=== PATIENT | female | born 1970 | race Hispanic/Latino ===

== ENCOUNTER 2018-03-06 17:30 | Emergency (ER) | payer BC ==
[2018-03-06] MEDS ORDERED: KETOROLAC TROMETHAMINE 30 MG/ML VIAL IV STA (18:18)
[2018-03-06] MEDS ORDERED: METFORMIN HCL500 MG PO (18:23)
== END 2018-03-06 19:00 | disposition home or self-care (01) ==
LOC: FSED 17:30
DX: K59.00 Constipation, unspecified (principal); Z88.0 Allergy status to penicillin
CPT/HCPCS: 74022; 80048; 85025; 99283; J1885

== ENCOUNTER 2018-03-22 15:07 | Emergency (ER) | payer BC ==
[~2018-03-22] VITALS: Ht 152.4 cm; Wt 77.1 kg
[~2018-03-22 15:07] MED LIST: METFORMIN HCL500 MG PO
[2018-03-22] MEDS ORDERED: ALBUTEROL/IPRATROPIUM 3 ML NEB NEB ONE (16:00)
== END 2018-03-22 18:13 | disposition home or self-care (01) ==
LOC: FSED 15:07
DX: R07.9 Chest pain, unspecified (principal); R05 Cough; J20.9 Acute bronchitis, unspecified; E11.9 Type 2 diabetes mellitus without complications
CPT/HCPCS: 71046; 80053; 81003; 82553; 84484; 85025; 93005; 99284

== ENCOUNTER 2018-10-28 19:45 | Emergency (ER) | payer BC ==
[~2018-10-28] VITALS: Ht 152.4 cm; Wt 74.8 kg
[2018-10-28] MEDS ORDERED: DONNATAL/LIDOCAINE/MAALOX 30 ML SUSP PO STA (20:07)
== END 2018-10-28 21:51 | disposition home or self-care (01) ==
LOC: FSED 19:45
DX: R10.13 Epigastric pain (principal); E11.9 Type 2 diabetes mellitus without complications; Z79.84 Long term (current) use of oral hypoglycemic drugs; F17.210 Nicotine dependence, cigarettes, uncomplicated
CPT/HCPCS: 80048; 80076; 81003; 81025; 82553; 84484; 85025; 93005; 99283

== ENCOUNTER 2018-11-18 14:50 | Emergency (ER) | payer BC ==
[~2018-11-18] VITALS: Ht 152.4 cm; Wt 74.8 kg
--- NOTE | 2018-11-18 15:52 | Diagnostic Imaging Report ---
EXAM: CT Abdomen and Pelvis WITHOUT contrast INDICATION: Right flank pain. Kidney infection. COMPARISON: None. TECHNIQUE: Abdomen and pelvis were scanned utilizing a multidetector helical scanner from the lung base to the pubic symphysis without administration of IV contrast. Absence of intravenous contrast decreases sensitivity for detection of focal lesions and vascular pathology. Coronal and sagittal reformations were obtained. Routine protocol was performed. IV CONTRAST: None. ORAL CONTRAST: Water RADIATION DOSE: Total DLP: 741.54 mGy*cm Estimated effective dose: (DLP x 0.015 x size factor) mSv COMPLICATIONS: None FINDINGS: LINES and TUBES: None. LOWER THORAX: Unremarkable HEPATOBILIARY: Mild hepatic steatosis. No focal hepatic lesions. No biliary ductal dilation. GALLBLADDER: No radio-opaque stones or sludge. No wall thickening. SPLEEN: No splenomegaly. PANCREAS: No focal masses or ductal dilatation. ADRENALS: No adrenal nodules KIDNEYS/URETERS: Left renal atrophy. No hydronephrosis. No cystic or solid mass lesions. No stones. GI TRACT: No abnormal distention, wall thickening, or evidence of bowel obstruction. Appendix is normal. PELVIC ORGANS/BLADDER: Unremarkable. LYMPH NODES: No lymphadenopathy. VESSELS: Unremarkable. PERITONEUM / RETROPERITONEUM: No free air or fluid. BONES: Unremarkable. SOFT TISSUES: Tiny fat-containing right inguinal hernia. IMPRESSION: 1. No acute abdominopelvic abnormality. 2. Left renal atrophy. Signed by: Dr. Jordi Nolasco M.D. on 11/18/2018 3:49 PM
== END 2018-11-18 17:01 | disposition home or self-care (01) ==
LOC: FSED 14:50
DX: R10.31 Right lower quadrant pain (principal); R11.0 Nausea; M54.5 Low back pain; N30.90 Cystitis, unspecified without hematuria; E11.9 Type 2 diabetes mellitus without complications
CPT/HCPCS: 74176; 81003; 81025; 99284

== ENCOUNTER 2020-09-02 08:07 | Emergency (ER) | payer OTHER ==
[~2020-09-02] VITALS: Ht 152.4 cm; Wt 74.8 kg
[~2020-09-02 08:07] MED LIST changes: +BACTRIM DS TAB1 EACH PO
[2020-09-02] MEDS ORDERED: ONDANSETRON HCL INJ 2MG/ML 2ML 2 MG/ML VIAL IV STA (08:28)
[2020-09-02] MEDS ORDERED: KETOROLAC TROMETHAMINE 30 MG/ML VIAL IV STA (08:28)
[2020-09-02] MEDS ORDERED: SODIUM CHLORIDE 0.9% 1000ML 1,000 ML ONE (08:44)
--- OUTSIDE RECORDS SUMMARY | 2020-09-02 08:45 | XMS REPORT | Continuity of Care Document ---
Author Author [facility] t Organization [facility] Address [address] [place] [address] Phone Unavailable Care Team Providers Care Warehouse Receiving Supervisor Name Role Phone ALESSANDRO CINTRON PCP Kay LARSON Unavailable Payers Payer Name Policy Type Policy Number Effective Date Expiration Date S ource Self Pay NA [facility] [id number] 2017 00:00:00 2 00:00:00 [facility] Problems This patient has no known problems. Allergies, Adverse Reactions, Alerts Allergy Name Allergy Type Status Severity Reaction(s) Onset Date Inacti ve Date Treating Clinician Comments Source Iodinated Contrast Media DA Active [place] 2020-08-16 00:00:00 [facility] Penicillin Allergy to Substance Active Mild HIVES 2017-01-13 00:00:00 [facility] Penicillins DA Active [place] 2016-08-30 00:00:00 [facility] Medications Ordered Medication Name Filled Medication Name Start Date Stop Da te Current Medication? Ordering Clinician Indication Dosage Frequency Signature (SIG) Comments Components Source Sulfamethoxazole/Trimethoprim (Bactrim Ds Tablet) 1 Ea ch Tablet Sulfamethoxazole/Trimethoprim (Bactrim Ds Tablet) 1 Each Tablet 2019-09-09 00:00:00 Yes Socorro Rose Md 1 Twice A Day for In fection [facility] Metformin Hcl 500 Mg Tablet Metformin Hcl 500 Mg Tablet Yes 500 Twice A Day [facility] Procedures This patient has no known procedures. Encounters Start Date/Time End Date/Time [facility]counter [facility] ID Source 2019-11-30 12:59:00 2019-11-30 14:23:00 Departed Emergency Room [facility] [id number] [facility] 2019-09-09 13:56:00 2019-09-09 15:02:00 Departed Emergency Room [facility] [id number] [facility]. [facility] 2018-11-18 14:50:00 2018-11-18 17:01:00 Departed Emergency Room 1 SIVA LARSON [facility] [id number] [facility]. [facility] 2018-10-28 19:45:00 2018-10-28 21:51:00 Departed Emergency Room [facility] [id number] [facility]. [facility] 2018-03-22 15:07:00 2018-03-22 18:13:00 Departed Emergency Room [facility] [id number] [facility]. [facility] 2018-03-06 17:30:00 2018-03-06 19:00:00 Departed Emergency Room [facility] [id number] [facility]. [facility] Results Test Description Test Time Test Comments Results Result Comments Source LACTIC ACID 2020-08-17 00:57:00 Test Item LACTIC ACID (test code = LACT) 2.7 MMOL/L 0.5-2.2 H RESULTS CALLED TO FLY/ER.READ BACK & CONFIRMED? Y.BY FDeniseLABRG 08/17/20 0057. [id number] 23:13:00* Test Item Value Reference Range Interpretation Comments MAGNESIUM (test code = MAG) 1.7 mg/dL 1.8-2.4 L Comments to Aircraft Electrician: Clean CatchSpecimen Comment: Clean CatchTHYROID STIMULATING [id number] 23:13:00* Test Item Value Reference Range Interpretation Comments THYROID STIMULATING HORMONE (test code = TSH) 3.69 0.36-3.7 4 N Test Performed in MicroInternational Units/mL Comments to Aircraft Electrician: Clean CatchSpecimen Comment: Clean CatchTROPONIN-I 2020-08-16 23:13:00* Test Item Value Reference Range Interpretation Comments TROPONIN-I (test code = TROPI) 0.041 ng/mL <0.056 N Comments to Aircraft Electrician: Clean CatchSpecimen Comment: Clean CatchLACTIC ACID 2020-08-16 23:11:00* Test Item Value Reference Range Interpretation Comments LACTIC ACID (test code = LACT) 3.8 MMOL/L 0.5-2.2 HH RESULTS CALLED TO CHI/ER.READ BACK & CONFIRMED? Y.BY F.LAB.GF 08/16/20 2311. CBC W/AUTO [id number] 22:48:00* Test Item Value Reference Range Interpretation Comments WHITE BLOOD CELL (test code = WBC) 16.5 K/mm3 6.6-12.1 H RED BLOOD CELL (test code = RBC) 3.84 M/mm3 3.45-5.01 N HEMOGLOBIN (test code = HGB) 9.3 g/dL 10.7-13.9 L HEMATOCRIT (test code = HCT) 30.6 % 32.1-42.1 L MEAN CELL VOLUME (test code = MCV) 80 fL 84.1-94.8 L MEAN CELL HGB (test code = MCH) 24.2 pg 27-35 L MEAN CELL HGB CONCETRATION (test code = MCHC) 30.4 gm/dL 32.2-34. 1 L RED CELL DISTRIBUTION WIDTH (test code = RDW) 15.0 % 12.4-16. 5 N PLATELET COUNT (test code = PLT) 285 K/mm3 133-385 N MEAN PLATELET VOLUME (test code = MPV) 11.0 fl 9.1-12.7 N NEUTROPHIL % (test code = NT%) 77.1 % 56.5-79.4 N LYMPHOCYTE % (test code = LY%) 17.7 % 14.3-34.3 N MONOCYTE % (test code = MO%) 1.7 % 5.1-10.4 L EOSINOPHIL % (test code = EO%) 2.8 % 0.1-3.0 N BASOPHIL % (test code = BA%) 0.2 % 0.1-1.0 N NEUTROPHIL # (test code = NT#) 12.8 K/mm3 LYMPHOCYTE # (test code = LY#) 2.9 K/mm3 MONOCYTE # (test code = MO#) 0.3 K/mm3 EOSINOPHIL # (test code = EO#) 0.46 K/mm3 BASOPHIL # (test code = BA#) 0.0 K/mm3 RBC MORPHOLOGY REQUIRED (test code = RBCM) NORMAL NORMAL PLATELET MORPHOLOGY REQUIRED (test code = PLTMR) NORMAL BLACK L - CT ABD PELVIS [id number] 21:09:00 Patient Name: AC CALIXTO Unit No: [id number] EXAMS: CPT CODE: [id number] CT ABD PELVIS W/CONT 84492 CT ABDOMEN AND PELVIS WITH CONTRAST INDICATION: Generalized abdominal pain and nausea. TECHNIQUE: 100 mL Isovue-300 Intravenous contrast was administered followed by CT imaging of the abdomen and pelvis with axial, coronal and sagittal reconstructions. CT imaging performed at this location utilizes radiation dose optimization technique which includes one or more of the followin) Automated exposure control; 2) Adjustment of the mA and/or kV according to patient's size; 3) Use of iterative reconstruction techniques. DLP (mGy-cm): 688 COMPARISONS: CT abdomen and pelvis 09/13/2019 FINDINGS: There is no acute osseous fracture or dislocation. There are tiny fat filled noninflamed inguinal hernias. There is no organized fluid collection or mass in the soft tissues. The aor ta reveals no aneurysm or acute process. The inferior vena cava reveals no acut e process. The lung bases reveal no acute process. There is suggestion o f fatty infiltration of the liver. There is no focal hepatic mass or acute pro cess. The gallbladder and bile ducts reveal no acute process. The pancre as reveals no acute process. The spleen reveals no acute process. Th e adrenal glands reveal no acute process or mass. There is chronic severe atrophy of the left kidney. There is compensatory hypertrophy of the right kid alisson. There is no acute renal process. There is no renal mass. There is a st able incidental 1.8 x 1.9 x 2.1 cm right renal artery aneurysm. [facility] NAME: AC CALIXTO Radiology Department PHYS: ISRAEL Hdz Abelardo Monroy [address] : 1970 AGE: 49 SEX: F [place], [place] [address] LOC: F.ERS PHONE #: [phone] EXAM DATE: 08/16/2020 STATUS: REG ER FAX #: [phone] RAD NO: Page 1 Signed Report 1 Patient Name: AC CALIXTO Unit No: [id number] EXAMS: CPT CODE: [id number] CT ABD PELVIS W/CONT 03120 < Continued> The urinary bladder reveals no acute process. There are corpus luteal cysts in the left ovary. There is no acute reproductive structure abnormality. There are benign vascular calcifications in the pelvis. There is no intra-abdominal free fluid. There is no intra-abdominal free gas. There is no lymphadenopathy. There is a small amount of retained colonic stool. There is no bowel obstruction. There is no bowel mucosal thickening or inflammation. There is no evidence of acute appendicitis. IMPRESSION: 1. No acute intra-abdominal process. 2. The appendix is normal. 3. There is a stable 1.8 x 1.9 x 2.1 cm right renal artery aneurysm. There is no evidence of aneurysm rupture. at 2108 Reported and signed by: Mitul Randhawa DO CC: Technologist: Kishore Roberts, RT CTDI: 12.93 DLP: 688.15 Trnscrbd D/ (2108) [email or web address] [facility] [place] NAME: AC CALIXTO Radiology Department PHYS: Abelardo Shipman [address] : 1970 AGE: 49 SEX: F [place], [place] [address] LOC: KATI PHONE #: [phone] EXAM DATE: 08/16/2020 STATUS: REG ER FAX #: [phone] RAD NO: Page 2 Signed Report 1 Patient Name: AC CALIXTO Unit No: [id number] EXAMS: CPT CODE: [id number] CT ABD PELVIS W/CONT 95789 <Continued> Orig Print D/T: S: 08/16/2020 (2111) [facility] NAME: AC CALIXTO Radiology Department PHYS: Abelardo Shipman [address] : 1970 AGE: 49 SEX: F [place], [place] [address] LOC: KATI PHONE #: [phone] EXAM DATE: 08/16/2020 STATUS: RIGO LOPEZ FAX #: [phone] RAD NO: Page 3 Si gned Report 1 HCG [id number] 20:30:00* Test Item Value Reference Range Interpretation Comments HCG SERUM (test code = HCG) <1 INTERPRETATION:VALUES BETWEEN 15-20 milliInternational units/mL NEED TO BERETESTED WITHIN 48 HOURS. All units for these ranges are in milliInternationalunits/mL0-1 WK AFTER CONCEPTION 0-50 1-2 WKS AFTER CONCEPTION 40-3002-3 WKS AFTER CONCEPTION 100-1,0003-4 WKS AFTER CONCEPTION 500-6,0001-2 MONTHS AFTER CONCEPTION 5,000-200,0002-3 MONTHS AFTER CONCEPTION 10,000-100,0002ND TRIMESTER 3,000-50,0003RD TRIMESTER 1,000- 50,000 SPECIMENS WITH AN HCG LEVEL FROM 0-6 milliInternationalunits/mL SHOULD BE CONSIDERED NEGATIVE COMPREHENSIVE METABOLIC [id number] 20:19:00* Test Item Value Reference Range Interpretation Comments SODIUM (test code = NA) 136 mEq/L 135-145 N POTASSIUM (test code = K) 3.7 mEq/L 3.5-5.0 N CHLORIDE (test code = CL) 104 mEq/L 100-115 N CARBON DIOXIDE (test code = CO2) 24 mEq/L 22-31 N ANION GAP (test code = GAP) 11.60 10-20 N GLUCOSE (test code = GLU) 213 mg/dL 65-110 H BLOOD UREA NITROGEN (test code = BUN) 17 mg/dL 7-18 N GLOMERULAR FILTRATION RATE (test code = GFR) 67 ml/min >60 N CREATININE (test code = CREAT) 0.9 mg/dL 0.5-1.0 N TOTAL PROTEIN (test code = PROT) 6.9 gm/dL 6.3-8.2 N ALBUMIN (test code = ALB) 3.3 gm/dL 3.4-4.8 L CALCIUM (test code = CA) 8.5 mg/dL 8.4-10.2 N BILIRUBIN TOTAL (test code = BILT) 0.2 mg/dL 0.2-1.0 N SGOT/AST (test code = AST) 25 units/L 15-37 N SGPT/ALT (test code = ALT) 50 units/L 12-78 N ALKALINE PHOSPHATASE TOTAL (test code = ALKP) 74 units/L 46-116 N [id number] 20:19:00* Test Item Value Reference Range Interpretation Comments LIPASE (test code = LIP) 350 units/L 73-393 N DRUGS OF ABUSE [id number] 20:13:00* Test Item Value Reference Range Interpretation Comments UR COCAINE (test code = COCAU) NEGATIVE NEGATIVE DETECTION CUT OFF: 150 ng/mL UR CANNABINOIDS (test code = CANU) NEGATIVE NEGATIVE DETECTION CUT OFF: 50 ng/mL UR AMPHETAMINE (test code = AMPHU) NEGATIVE NEGATIVE DETECTION CUT OFF: 500 ng/mL UR BARBITURATE QUAL (test code = BARBQLU) NEGATIVE NEGATIVE DETECTION CUT OFF: 200 ng/mL UR BENZODIAZEPINE (test code = BENZU) NEGATIVE NEGATIVE DETECTION CUT OFF: 150 ng/mL UR OPIATES QUAL (test code = OPIAQLU) NEGATIVE NEGATIVE DETECTION CUT OFF: 100 ng/mL UR PHENCYCLIDINE (PCP) (test code = PHENCU) NEGATIVE NEGATIVE DETECTION CUT OFF: 25 ng/mL CBC W/AUTO [id number] 20:00:00* Test Item Value Reference Range Interpretation Comments WHITE BLOOD CELL (test code = WBC) 9.7 K/mm3 6.6-12.1 N RED BLOOD CELL (test code = RBC) 3.94 M/mm3 3.45-5.01 N HEMOGLOBIN (test code = HGB) 9.5 g/dL 10.7-13.9 L HEMATOCRIT (test code = HCT) 30.8 % 32.1-42.1 L MEAN CELL VOLUME (test code = MCV) 78 fL 84.1-94.8 L MEAN CELL HGB (test code = MCH) 24.1 pg 27-35 L MEAN CELL HGB CONCETRATION (test code = MCHC) 30.8 gm/dL 32.2-34. 1 L RED CELL DISTRIBUTION WIDTH (test code = RDW) 14.9 % 12.4-16. 5 N PLATELET COUNT (test code = PLT) 263 K/mm3 133-385 N MEAN PLATELET VOLUME (test code = MPV) 11.1 fl 9.1-12.7 N NEUTROPHIL % (test code = NT%) 58.9 % 56.5-79.4 N LYMPHOCYTE % (test code = LY%) 29.6 % 14.3-34.3 N MONOCYTE % (test code = MO%) 5.0 % 5.1-10.4 L EOSINOPHIL % (test code = EO%) 6.3 % 0.1-3.0 H BASOPHIL % (test code = BA%) 0.1 % 0.1-1.0 N NEUTROPHIL # (test code = NT#) 5.7 K/mm3 LYMPHOCYTE # (test code = LY#) 2.9 K/mm3 MONOCYTE # (test code = MO#) 0.5 K/mm3 EOSINOPHIL # (test code = EO#) 0.61 K/mm3 BASOPHIL # (test code = BA#) 0.0 K/mm3 RBC MORPHOLOGY REQUIRED (test code = RBCM) NORMAL NORMAL PLATELET MORPHOLOGY REQUIRED (test code = PLTMR) NORMAL BLACK L UA RFLX MICR CULT IF [id number] 20:00:00* Test Item Value Reference Range Interpretation Comments UA COLOR (test code = COLU) STRAW YELLOW UA APPEARANCE (test code = APPU) CLEAR CLEAR UA GLUCOSE DIPSTICK (test code = DGLUU) 3+ NEG A UA BILIRUBIN DIPSTICK (test code = BILU) NEGATIVE NEG UA KETONE DIPSTICK (test code = KETU) NEGATIVE NEG UA SPECIFIC GRAVITY (test code = SGU) 1.013 1.001-1.035 N UA BLOOD DIPSTICK (test code = PABLO) NEG NEG UA PH DIPSTICK (test code = ALBERT) 6.0 5-9 UA PROTEIN DIPSTICK (test code = PROU) NEGATIVE NEG UA UROBILINIOGEN DIPSTICK (test code = URO) NEGATIVE mg/dL NEG UA NITRITE DIPSTICK (test code = SUNDAR) NEG NEG UA LEUKOCYTE ESTERASE DIPSTICK (test code = LEUU) NEG NEG UA WBC (test code = WBCU) 0-2 #/hpf NONE SEEN UA RBC (test code = RBCU) NONE SEEN #/hpf NONE SEEN UA EPITHELIAL CELLS (test code = EPIU) RARE #/HPF RARE-FEW UA BACTERIA (test code = BACU) RARE /HPF RARE-FEW UA MUCUS (test code = MUCU) RARE NONE SEEN Indication for culture: Dysuria/FrequencyUA RFLX MICR CULT IF INDICATED 2019-11-26 02:33:00* Test Item Value Reference Range Interpretation Comments UA COLOR (test code = COLU) YELLOW YELLOW UA APPEARANCE (test code = APPU) CLOUDY CLEAR A UA GLUCOSE DIPSTICK (test code = DGLUU) 3+ NEG A UA BILIRUBIN DIPSTICK (test code = BILU) NEGATIVE NEG UA KETONE DIPSTICK (test code = KETU) NEGATIVE NEG UA SPECIFIC GRAVITY (test code = SGU) 1.008 1.001-1.035 N UA BLOOD DIPSTICK (test code = PABLO) 2+ NEG A UA PH DIPSTICK (test code = ALBERT) 5.0 5-9 UA PROTEIN DIPSTICK (test code = PROU) NEGATIVE NEG UA UROBILINIOGEN DIPSTICK (test code = URO) NEGATIVE mg/dL NEG UA NITRITE DIPSTICK (test code = SUNDAR) POSITIVE NEG A UA LEUKOCYTE ESTERASE DIPSTICK (test code = LEUU) 2+ NEG A UA WBC (test code = WBCU) TOO NUMEROUS TO CNT #/hpf NONE SEEN A UA RBC (test code = RBCU) 6-10 #/hpf NONE SEEN A UA EPITHELIAL CELLS (test code = EPIU) MODERATE #/HPF RARE-FEW A UA BACTERIA (test code = BACU) MANY /HPF RARE-FEW A UA MUCUS (test code = MUCU) RARE NONE SEEN Indication for culture: Suprapubic PainTHYROID STIMULATING [id number] 01:50:00* Test Item Value Reference Range Interpretation Comments THYROID STIMULATING HORMONE (test code = TSH) 1.33 0.36-3.7 4 N Test Performed in MicroInternational Units/mL COMPREHENSIVE METABOLIC [id number] 01:15:00* Test Item Value Reference Range Interpretation Comments SODIUM (test code = NA) 137 mEq/L 135-145 N POTASSIUM (test code = K) 3.7 mEq/L 3.5-5.0 N CHLORIDE (test code = CL) 103 mEq/L 100-115 N CARBON DIOXIDE (test code = CO2) 21 mEq/L 22-31 L ANION GAP (test code = GAP) 16.40 10-20 N GLUCOSE (test code = GLU) 237 mg/dL 65-110 H BLOOD UREA NITROGEN (test code = BUN) 13 mg/dL 7-18 N GLOMERULAR FILTRATION RATE (test code = GFR) 53 ml/min >60 L CREATININE (test code = CREAT) 1.1 mg/dL 0.5-1.0 H TOTAL PROTEIN (test code = PROT) 6.7 gm/dL 6.3-8.2 N ALBUMIN (test code = ALB) 3.3 gm/dL 3.4-4.8 L CALCIUM (test code = CA) 8.1 mg/dL 8.4-10.2 L BILIRUBIN TOTAL (test code = BILT) 0.2 mg/dL 0.2-1.0 N SGOT/AST (test code = AST) 17 units/L 15-37 N SGPT/ALT (test code = ALT) 33 units/L 12-78 N ALKALINE PHOSPHATASE TOTAL (test code = ALKP) 82 units/L 46-116 N CREATINE KINASE (CK)2019-11-26 01:15:00* Test Item Value Reference Range Interpretation Comments CREATINE KINASE (CK) (test code = CK) 62 Units/L 26-192 N [id number] 01:15:00* Test Item Value Reference Range Interpretation Comments TROPONIN-I (test code = TROPI) <0.017 ng/mL <0.056 N INFLUENZA A B [id number] 01:13:00* Test Item Value Reference Range Interpretation Comments INFLUENZA A PCR (test code = FLUAPCR) NEGATIVE NEGATIVE INFLUENZA B PCR (test code = FLUBPCR) NEGATIVE NEGATIVE CBC W/AUTO [id number] 01:01:00* Test Item Value Reference Range Interpretation Comments WHITE BLOOD CELL (test code = WBC) 8.7 K/mm3 6.6-12.1 N RED BLOOD CELL (test code = RBC) 3.81 M/mm3 3.45-5.01 N HEMOGLOBIN (test code = HGB) 9.3 g/dL 10.7-13.9 L HEMATOCRIT (test code = HCT) 29.5 % 32.1-42.1 L MEAN CELL VOLUME (test code = MCV) 77 fL 84.1-94.8 L MEAN CELL HGB (test code = MCH) 24.4 pg 27-35 L MEAN CELL HGB CONCETRATION (test code = MCHC) 31.5 gm/dL 32.2-34. 1 L RED CELL DISTRIBUTION WIDTH (test code = RDW) 15.3 % 12.4-16. 5 N PLATELET COUNT (test code = PLT) 236 K/mm3 133-385 N IMMATURE PLATELET FRACTION (test code = IPF) 0.0 % 0.0-10.8 N MEAN PLATELET VOLUME (test code = MPV) 10.4 fl 9.1-12.7 N NEUTROPHIL % (test code = NT%) 79.6 % 56.5-79.4 H LYMPHOCYTE % (test code = LY%) 13.2 % 14.3-34.3 L MONOCYTE % (test code = MO%) 6.6 % 5.1-10.4 N EOSINOPHIL % (test code = EO%) 0.3 % 0.1-3.0 N BASOPHIL % (test code = BA%) 0.1 % 0.1-1.0 N NEUTROPHIL # (test code = NT#) 6.9 K/mm3 LYMPHOCYTE # (test code = LY#) 1.1 K/mm3 MONOCYTE # (test code = MO#) 0.6 K/mm3 EOSINOPHIL # (test code = EO#) 0.03 K/mm3 BASOPHIL # (test code = BA#) 0.0 K/mm3 RBC MORPHOLOGY REQUIRED (test code = RBCM) NORMAL NORMAL PLATELET MORPHOLOGY REQUIRED (test code = PLTMR) NORMAL BLACK L COMPREHENSIVE METABOLIC [id number] 18:48:00* Test Item Value Reference Range Interpretation Comments SODIUM (test code = NA) 139 mEq/L 135-145 N POTASSIUM (test code = K) 4.0 mEq/L 3.5-5.0 N CHLORIDE (test code = CL) 107 mEq/L 100-115 N CARBON DIOXIDE (test code = CO2) 20 mEq/L 22-31 L ANION GAP (test code = GAP) 15.90 10-20 N GLUCOSE (test code = GLU) 130 mg/dL 65-110 H BLOOD UREA NITROGEN (test code = BUN) 13 mg/dL 7-18 N GLOMERULAR FILTRATION RATE (test code = GFR) 44 ml/min >60 L CREATININE (test code = CREAT) 1.3 mg/dL 0.5-1.0 H TOTAL PROTEIN (test code = PROT) 7.3 gm/dL 6.3-8.2 N ALBUMIN (test code = ALB) 3.5 gm/dL 3.4-4.8 N CALCIUM (test code = CA) 8.3 mg/dL 8.4-10.2 L BILIRUBIN TOTAL (test code = BILT) 0.2 mg/dL 0.2-1.0 N SGOT/AST (test code = AST) 26 units/L 15-37 N SGPT/ALT (test code = ALT) 39 units/L 12-78 N ALKALINE PHOSPHATASE TOTAL (test code = ALKP) 80 units/L 46-116 N CBC W/AUTO [id number] 17:43:00* Test Item Value Reference Range Interpretation Comments WHITE BLOOD CELL (test code = WBC) 8.0 K/mm3 6.6-12.1 N RED BLOOD CELL (test code = RBC) 4.30 M/mm3 3.45-5.01 N HEMOGLOBIN (test code = HGB) 10.8 g/dL 10.7-13.9 N HEMATOCRIT (test code = HCT) 34.6 % 32.1-42.1 N MEAN CELL VOLUME (test code = MCV) 81 fL 84.1-94.8 L MEAN CELL HGB (test code = MCH) 25.1 pg 27-35 L MEAN CELL HGB CONCETRATION (test code = MCHC) 31.2 gm/dL 32.2-34. 1 L RED CELL DISTRIBUTION WIDTH (test code = RDW) 16.4 % 12.4-16. 5 N PLATELET COUNT (test code = PLT) 333 K/mm3 133-385 N IMMATURE PLATELET FRACTION (test code = IPF) 0.0 % 0.0-10.8 N MEAN PLATELET VOLUME (test code = MPV) 11.4 fl 9.1-12.7 N NEUTROPHIL % (test code = NT%) 59.8 % 56.5-79.4 N LYMPHOCYTE % (test code = LY%) 26.1 % 14.3-34.3 N MONOCYTE % (test code = MO%) 6.1 % 5.1-10.4 N EOSINOPHIL % (test code = EO%) 7.6 % 0.1-3.0 H BASOPHIL % (test code = BA%) 0.3 % 0.1-1.0 N NEUTROPHIL # (test code = NT#) 4.8 K/mm3 LYMPHOCYTE # (test code = LY#) 2.1 K/mm3 MONOCYTE # (test code = MO#) 0.5 K/mm3 EOSINOPHIL # (test code = EO#) 0.61 K/mm3 BASOPHIL # (test code = BA#) 0.0 K/mm3 RBC MORPHOLOGY REQUIRED (test code = RBCM) NORMAL NORMAL PLATELET MORPHOLOGY REQUIRED (test code = PLTMR) NORMAL BLACK L - CT ABD PELVIS W/O [id number] 17:19:00 Patient Name: AC CALIXTO Unit No: [id number] EXAMS: CPT CODE: [id number] CT ABD PELVIS W/O CONT 82864 EXAMINATION: CT scan of the abdomen and pelvis without contrast 09/13/2019. CLINICAL HISTORY: Right flank pain, rule out stone. COMPARISON: None. TECHNIQUE: CT scan of the abdomen and pelvis was performed without oral or intravenous contrast administration. Sagittal and coronal reformatted images were also reviewed. One or more of the following dose techniques were utilized; automated exposure control, adjustment of the mA and/or kV according to patient size, and/or utilization of iterative reconstruction technique. DLP: 440.69 mGy-cm. FINDINGS: The examination is limited due to lack of contrast administration, particularly for the solid organs, tract, bowel, and vasculature. The lung bases are within normal limits in appearance. Given the limitations of a non-IV contrast examination, the liver, gallbladder, spleen, pancreas, and adrenal glands are within normal limits in appearance. The right kidney is mildly enlarged in general. It is otherwise within normal limits in appearance. There is no evidence of hydronephrosis or hydroureter. There is no evidence of renal or ureteral calculi. In the absence of IV contrast administration, focal mass or i nflammation cannot be excluded. Medial to the upper pole of the right kidney , there is a 21 x 17 x 19 mm isodense abnormality which appears to be contiguou s with the right renal artery. However, because of the left of IV contrast, th is cannot be confirmed. The left kidney is markedly small and atrophic. It demonstrates no calculi nor hydronephrosis. Incidentally noted is a retroaort ic left renal vein. A few colonic diverticula are evident. There is no bernardo dence of pericolonic inflammatory change to suggest diverticulitis. The appen danny is within normal limits in CT appearance. [facility] NAME: AC CALIXTO Radiology Department PHYS: Virgen Proctor MD [address] : 1970 AGE: 48 SEX: F [place], [place] [address] ACCT N O: [id number] LOC: MarilyERS PHONE #: [phone] EXAM DATE: 09/13/2019 STATUS: REG ER FAX #: [phone] RAD NO: Page 1 Signed Report 1 Patient Name: AC CALIXTO Unit No: [id number] EXAMS: CPT CODE: [id number] CT ABD PELVIS W/O CONT 37435 <Continued> The uterus and ovaries are within normal limits in CT appearance. The bladder demonstrates no abnormalities. No free fluid is evident in the abdomen or pelvis. A small right inguinal hernia is evident. Minimal degenerative changes are evident in the visualized osseous structures. IMPRESSION: 1. Mildly diffusely enlarged right kidney. This may be compensatory in light of the small atrophic left kidney. Underlying mass or inflammatory c hange such as pyelonephritis cannot be excluded in the absence of IV contrast administration. There is no evidence of renal or ureteral calculi. 2. T he approximately 2 cm isodense abnormality medial to the upper pole of the ri ght kidney may represent a vascular structure such as a renal artery aneurysm . Enlarged lymph node is considered less likely. Further evaluation with CT with IV contrast is recommended. 3. No CT evidence of appendicitis. 4. Small right inguinal hernia. at 1719 Reported and signed by: Sulma cornell MD CC: Virgen Elder MD Technologist: Kishore Roberts, RT CTDI: 8.61 DLP: 440.69 Trnscrbd D/ (1719) t.[email or web address].[facility] NAME: AC CALIXTO Radiology Department PHYS: Virgen Proctor MD [address] : 1970 AGE: 48 SEX: F [place], [place] [address] LOC: [facility] PHONE #: [phone] EXAM DATE: 09/13/2019 STATUS: REG ER FAX #: RAD NO: Page 2 Signed R eport 1 Patient Name: AC CALIXTO Unit No: [id number] EXAMS: CPT CODE: [id number] CT ABD PELVIS W/O CONT 14318 <Continued> Orig Print D/T: S: 09/13/2019 (1722) [facility] NAME: AC CALIXTO Radiology Department PHYS: Virgen Proctor MD [address] : 1970 AGE: 48 SEX: F [place], [place] [address] LOC: [facility] PHONE #: [phone] EXAM DATE: 09/13/2019 STATUS: REG ER FAX #: [phone] RAD NO: Page 3 Signed Report 1 UA RFLX MICR CULT IF [id number] 16:14:00* Test Item Value Reference Range Interpretation Comments UA COLOR (test code = COLU) YELLOW YELLOW UA APPEARANCE (test code = APPU) TURBID CLEAR A UA GLUCOSE DIPSTICK (test code = DGLUU) NEGATIVE NEG UA BILIRUBIN DIPSTICK (test code = BILU) NEGATIVE NEG UA KETONE DIPSTICK (test code = KETU) NEGATIVE NEG UA SPECIFIC GRAVITY (test code = SGU) 1.029 1.001-1.035 N UA BLOOD DIPSTICK (test code = PABLO) NEG NEG UA PH DIPSTICK (test code = ALBERT) 5.0 5-9 UA PROTEIN DIPSTICK (test code = PROU) 1+ NEG A UA UROBILINIOGEN DIPSTICK (test code = URO) NEGATIVE mg/dL NEG UA NITRITE DIPSTICK (test code = SUNDAR) NEG NEG UA LEUKOCYTE ESTERASE DIPSTICK (test code = LEUU) TRACE NEG A UA WBC (test code = WBCU) 0-2 #/hpf NONE SEEN UA RBC (test code = RBCU) 0-2 #/hpf NONE SEEN UA EPITHELIAL CELLS (test code = EPIU) RARE #/HPF RARE-FEW UA BACTERIA (test code = BACU) RARE /HPF RARE-FEW UA URIC ACID CRYSTALS (test code = URIU) 21-25 #HPF UA MUCUS (test code = MUCU) 2+ NONE SEEN Indication for culture: Suprapubic PainUR HCG [id number] 16:14:00* Test Item Value Reference Range Interpretation Comments UR HCG QUAL (test code = HCGQLU) NEGATIVE 1. Very dilute urine specimens, as indicated by a lowspecific gravity, may not contain teleservices representative levels ofhCG. 2. False negative results may occur when the levels of hCGare below the sensitivity level of the test. If is still suspected, a first morningurine specimen should be collected 48 hours later andtested. Indication for culture: Suprapubic PainUA RFLX MICR CULT IF INDICATED 2019-09-13 16:13:00* Test Item Value Reference Range Interpretation Comments UA COLOR (test code = COLU) YELLOW YELLOW UA APPEARANCE (test code = APPU) TURBID CLEAR A UA GLUCOSE DIPSTICK (test code = DGLUU) NEGATIVE NEG UA BILIRUBIN DIPSTICK (test code = BILU) NEGATIVE NEG UA KETONE DIPSTICK (test code = KETU) NEGATIVE NEG UA SPECIFIC GRAVITY (test code = SGU) 1.029 1.001-1.035 N UA BLOOD DIPSTICK (test code = PABLO) NEG NEG UA PH DIPSTICK (test code = ALBERT) 5.0 5-9 UA PROTEIN DIPSTICK (test code = PROU) 1+ NEG A UA UROBILINIOGEN DIPSTICK (test code = URO) NEGATIVE mg/dL NEG UA NITRITE DIPSTICK (test code = SUNDAR) NEG NEG UA LEUKOCYTE ESTERASE DIPSTICK (test code = LEUU) TRACE NEG A UA WBC (test code = WBCU) 0-2 #/hpf NONE SEEN UA RBC (test code = RBCU) 0-2 #/hpf NONE SEEN UA EPITHELIAL CELLS (test code = EPIU) RARE #/HPF RARE-FEW UA BACTERIA (test code = BACU) RARE /HPF RARE-FEW UA URIC ACID CRYSTALS (test code = URIU) 21-25 #HPF UA MUCUS (test code = MUCU) 2+ NONE SEEN Indication for culture: Suprapubic PainUR HCG [id number] 16:13:00* Test Item Value Reference Range Interpretation Comments UR HCG QUAL (test code = HCGQLU) 1. Very dilute urine specimens, as indicated by a lowspecific gravity, may not contain teleservices representative levels ofhCG. 2. False negative results may occur when the levels of hCGare below the sensitivity level of the test. If is still suspected, a first morningurine specimen should be collected 48 hours later andtested. Indication for culture: Suprapubic PainSCR MAMM BILATERAL NHAN CAD DIGITAL 2019-03-24 12:57:35 - SCR MAMM BILATERAL NHAN CAD DIGITALBILATERAL DIGITAL SCREENING MAMMOGRAM 3D/2D WITH CAD: 03/24/2019CLINICAL: Asymptomatic. Digital breast tomosynthesis was performed in addition to routine CC and MLO views. Current mammographic images were evaluated by either a [employer] M-Vu or a [employer] ImageAIRSISer CAD (computer aided detection system). Comparison is made to exams dated 02/08/2018 mammogram, 11/08/2016 mammogram - [facility] and 11/06/2013 mammogram - [facility]. There are scattered fibroglandular tissues in both breasts. There is a biopsy clip in the left breast. No suspicious mass, architectural distortion, malignant type calcification, or lymph node abnormality detected. Breast architecture is stable compared to prior exams.IMPRESSION: NEGATIVEThere is no mammographic evidence of malignancy. Resume annual screening mammography in one year. Bruce Allen M.D. ss/penrad:03/24/2019 12:57:35 Sexual Health Physician: Nola SHORT, [facility]-FWletter sent: BIRADS 1-2 Normal Mammogram BI-RADS: 1 NegativeCT ABD/PEL WO [id number] 15:40:00 [place] [address] Patient Name: AC CALIXTO MR #: [id number] : 1970 Age/Sex: 48/F Req #: [id number] Adm Physician: Ordered by: SIVA LARSON MD Report #: [id number] Location: [facility] [place] Room/Bed: Procedure: [id number] H OPD/CT ABD/PEL WO CONTRAST-HOPD Exam Date: 11/18/18 Exam Time: 1530 REPORT STATUS: Sign ed EXAM: CT Abdomen and Pelvis WITHOUT contrast INDICATION: Right flank p ain. Kidney infection. COMPARISON: None. TECHNIQUE: Abdomen and pelvis were scanned utilizing a multidetector helical scanner from the lung base to the pu bic symphysis without administration of IV contrast. Absence of intravenous co ntrast decreases sensitivity for detection of focal lesions and vascular patho logy. Coronal and sagittal reformations were obtained. Routine protocol was pe rformed. IV CONTRAST: None. ORAL CONTRAST: Water RADIATION DOSE: Total DLP: 741.54 mGy*cm Estimated ef fective dose: (DLP x 0.015 x size factor) mSv COMPLICATIONS: None FINDINGS: LINES and TUBES: None. LOWER THORAX: Unremarkable HEPATOBILIARY: Mild hepatic steatosis. No focal hepatic lesions. No biliary ductal dilation. GALLBLADDER: No radio-opaque stones or sludge. No wall t hickening. SPLEEN: No splenomegaly. PANCREAS: No focal masses or duct al dilatation. ADRENALS: No adrenal nodules KIDNEYS/URETERS: Lef t renal atrophy. No hydronephrosis. No cystic or solid mass lesions. No stone s. GI TRACT: No abnormal distention, wall thickening, or evidence of bowel obstruction. Appendix is normal. PELVIC ORGANS/BLADDER: Unremarkabl e. LYMPH NODES: No lymphadenopathy. VESSELS: Unremarkable. PERITO NEUM / RETROPERITONEUM: No free air or fluid. BONES: Unremarkable. SOF T TISSUES: Tiny fat-containing right inguinal hernia. IMPRESSION: 1. No acute abdominopelvic abnormality. 2. Left renal atrophy. Signed by: Dr. Jordi De La Cruz M.D. on 11/18/2018 3:49 PM Dictated By: JOHN TREVINO MD, MD [id number] Tr anscribed By: NATHALIA on 11/18/18 0201 COPY TO: SIVA LARSON MD
--- NOTE | 2020-09-02 09:45 | Diagnostic Imaging Report ---
EXAM: CT Abdomen and Pelvis WITHOUT intravenous contrast INDICATION: ^pain ^[id number] ^0905. COMPARISON: 11/18/2018 TECHNIQUE: Abdomen and pelvis were scanned utilizing a multidetector helical scanner from the lung base to the pubic symphysis without administration of IV contrast. Coronal and sagittal reformations were obtained. Routine technique was performed. IV CONTRAST: None ORAL CONTRAST: None COMPLICATIONS: None RADIATION DOSE: Total DLP: 819 mGy*cm Dose modulation, iterative reconstruction, and/or weight based adjustment of the mA/kV was utilized to reduce the radiation dose to as low as reasonably achievable. FINDINGS: LOWER THORAX: Normal. HEPATOBILIARY: Diffusely hypoattenuating. No suspicious lesion or perihepatic fluid. Negative for biliary dilatation. Gallbladder is decompressed. SPLEEN: No splenomegaly. PANCREAS: No focal masses or ductal dilatation. ADRENALS: No adrenal nodules. KIDNEYS/URETERS: Stable asymmetric left renal atrophy. Right kidney is stable in appearance. Negative for hydronephrosis or perinephric fluid collection. Ureters not dilated. Stable soft tissue density adjacent to the right renal hilum (axial image 34) measuring up to 2.1 cm. Not significantly changed compared to CT dated 11/18/2018. Likely incidental although indeterminate by noncontrast technique. PELVIC ORGANS/BLADDER: Unremarkable. PERITONEUM / RETROPERITONEUM: No free air or fluid. LYMPH NODES: No lymphadenopathy. VESSELS: Unremarkable. GI TRACT: Limited due to lack of IV and oral contrast. Negative for obstruction. Normal appendix is noted. Moderate distal colonic stool retention is noted. No surrounding inflammatory changes are noted. BONES AND SOFT TISSUES: No acute osseous abnormality. Soft tissues are unremarkable. IMPRESSION: 1. Moderate colonic stool retention within the rectum and sigmoid colon. Correlate for constipation. Negative for small bowel obstruction. 2. Hepatic steatosis. 3. Stable asymmetric left renal atrophy. Signed by: Christoph Elder MD on 09/02/2020 9:42 AM
--- NOTE | 2020-09-02 10:10 | Emergency Department Note ---
History of Present Illnes History of Present Illness Chief Complaint: General Medicine Complaints History of Present Illness This is a 49 year old female Chief Complaint Comment PT C/O ABD PAIN AND RECTAL PAIN, STATES SHE FEELS LIKE THERE IS SOMETHING OBSTRUCTING IN HER STOMACH, HAS HAD H/O SIMILAR PROBELMS IN PAST AND WAS DX'D WITH CONSTIPATION, LAST BM YESTERDAY AND STOOL WAS MORE LIQUIDY THAN FORMED. PAIN INTERMITTENT FOR PAST 4 DAYS. . Historian: Patient Arrival Mode: Car Onset (how long ago): day(s) (2) Location: rectal Quality: bleed Radiation: Reports non-radiation Severity: moderate Onset quality: gradual Duration (how long): day(s) (2) Timing of current episode: intermittent Progression: waxing and waning Chronicity: new Context: Denies recent illness, Denies recent surgery, Denies recent immobilization, Denies recent travel, Denies trauma/injury, Denies new medications, Denies hx of DVT/PE, Denies non-compliance w/ medications, Denies other Relieving factors: none Exacerbating factors: none Associated symptoms: Denies denies other symptoms, Denies confusion, Denies chest pain, Denies cough, Denies diaphoresis, Denies fever/chills, Denies headaches, Denies loss of appetite, Denies malaise, Denies nausea/vomiting, Denies rash, Denies seizure, Denies shortness of breath, Denies syncope, Denies weakness, Denies other Treatments prior to arrival: none Past Medical/Family History Physician Review I have reviewed the patient's past medical and family history. Any updates have been documented here. 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) Past Surgical History: T&A Other Surgery: ENDOMETRIOSIS 20 YEARS AGO [facility]NEE Social History Smoking Cessation: Current some day smoker Counseling Performed: No Alcohol Use: Occasional Any Illegal Drug Use: No Physically hurt or threatened: No Other Last Tetanus: UNKNOWN Any Pre-Existing Lines (PICC,: No Review of Systems Review of Systems Constitutional: Reports no symptoms EENTM: Reports no symptoms Cardiovascular: Reports no symptoms Respiratory: Reports no symptoms Gastrointestinal: Reports as per HPI Genitourinary: Reports no symptoms Musculoskeletal: Reports no symptoms Integumentary: Reports no symptoms Neurological: Reports no symptoms Psychological: Reports no symptoms Endocrine: Reports no symptoms Hematological/Lymphatic: Reports no symptoms Physical Exam Related Data Allergies: Coded Allergies: iodine (Verified Allergy, Severe, ANAPHYLAXIS, 09/02/20) Penicillins (Verified Allergy, Mild, HIVES, 01/13/17) Triage Vital Signs Vital Signs Date Time Temp Pulse Resp B/P (MAP) Pulse Ox O2 Delivery O2 Flow Rate FiO2 09/02/20 08:18 97.8 92 18 143/74 99 Room Air Vital signs reviewed: Yes Physical Exam CONSTITUTIONAL Constitutional: Present well-developed, Present well-nourished HENT HENT: Present normocephalic, Present atraumatic, Present oropharynx clear/moist, Present nose normal; Absent oropharynx normal, Absent mucosae dry, Absent nasal discharge, Absent nasal congestion, Absent rhinorrhea, Absent oropharyngeal exudate, Absent tonsillar excudate, Absent pharynx abnormal, Absent erythema, Absent dentition normal, Absent dental caries, Absent other HENT L/R: Present left ext ear normal, Present right ext ear normal; Absent left TM normal, Absent right TM normal, Absent left canal normal, Absent right canal normal, Absent left impacted cerumen, Absent right impacted cerumen, Absent left bulging TM, Absent right bulging TM, Absent other EYES Eyes: Reports PERRL, Reports conjunctivae normal; Denies EOM normal, Denies lids normal, Denies left eye discharge, Denies right eye discharge, Denies scleral icterus, Denies other NECK Neck: Present ROM normal; Absent supple, Absent thyromegaly, Absent tracheal deviation, Absent stridor, Absent JVD, Absent cervical adenopathy, Absent carotid bruit, Absent other PULMONARY Pulmonary: Present effort normal, Present breath sounds normal; Absent respiratory distress, Absent rales, Absent rhonchi, Absent chest tenderness, Absent other CARDIOVASCULAR Cardiovascular: Present regular rhythm, Present heart sounds normal, Present capillary refill normal, Present normal rate; Absent irregular rhythm, Absent intact distal pulses, Absent tachycardia, Absent bradycardia, Absent murmur, Absent gallop, Absent friction rub, Absent palpable pulses, Absent strong pulses, Absent weak pulses, Absent LLE edema, Absent RLE edema, Absent other GASTROINTESTINAL Abdominal: Present soft, Present bowel sounds normal, Present tender GENITOURINARY Genitourinary: Present exam deferred; Absent vagina normal, Absent uterus normal, Absent guaiac result, Absent vaginal discharge, Absent other SKIN Skin: Present warm, Present dry; Absent erythema, Absent pale, Absent rash, Absent jaundiced, Absent bruising, Absent lesion, Absent other MUSCULOSKELETAL Musculoskeletal: Present ROM normal; Absent edema, Absent deformity, Absent tenderness, Absent swelling, Absent other NEUROLOGICAL Neurological: Present alert, Present oriented x 3, Present no gross motor or sensory deficits; Absent DTRs normal, Absent cranial nerve deficit, Absent sensory deficit, Absent abnormal DTRs, Absent abnormal coordination, Absent abnormal gait, Absent weakness, Absent other PSYCHOLOGICAL Psychological: Present mood/affect normal, Present judgement normal Results Laboratory Lab results reviewed: Yes Imaging Imaging results reviewed: Yes Assessment & Plan Medical Decision Making MDM obstruction appendicitis hemorrhoid Reassessment Reassessment time: 10:09 Reassessment better Assessment & Plan Final Impression: (1) Abdominal pain (2) Rectal bleed (3) Hemorrhoid (4) Anemia (5) Constipation Depart Disposition: HOME, SELF-CARE Last Vital Signs Date Time Temp Pulse Resp B/P (MAP) Pulse Ox O2 Delivery O2 Flow Rate FiO2 09/02/20 08:18 97.8 92 18 143/74 99 Room Air Home Meds Active Scripts Sulfamethoxazole/Trimethoprim (BACTRIM DS TABLET) 1 Each Tablet, 1 TAB PO BID for infection for 10 Days, #20 TAB 0 Refills Prov:LIYA LAM MD 09/09/19 Reported Medications Metformin Hcl (METFORMIN HCL) 500 Mg Tablet, 500 MG PO BID, #60 TAB 03/06/18 Medications in the ED Ketorolac Tromethamine 15 mg ONCE STAT IV Last administered on 09/02/20at 08:40; Admin Dose 15 MG; Start 09/02/20 at 08:28; Stop 09/02/20 at 08:41; Status DC Ondansetron HCl 4 mg NOW STAT IV Last administered on 09/02/20at 08:40; Admin Dose 4 MG; Start 09/02/20 at 08:28; Stop 09/02/20 at 08:42; Status DC Sodium Chloride 1,000 ml @ [facility] ONCE .ROUTE ; Start 09/02/20 at 08:44; Stop 09/02/20 at 08:40; Status DC HARINI ST MD Sep 02, 2020 10:10
[2020-09-02] MEDS ORDERED: ANUSOL-HC25 MG RC (10:13)
[2020-09-02] MEDS ORDERED: GOLYTELY SOLU4000 ML PO (10:13)
[2020-09-02 10:19] VITALS: BP 117/67
== END 2020-09-02 10:20 | disposition home or self-care (01) ==
LOC: FSED 08:30
DX: K62.89 Other specified diseases of anus and rectum (principal); K62.5 Hemorrhage of anus and rectum; K64.9 Unspecified hemorrhoids; K59.00 Constipation, unspecified; E11.65 Type 2 diabetes mellitus with hyperglycemia; D64.9 Anemia, unspecified
CPT/HCPCS: 74176; 80048; 80076; 81003; 85025; 99283; J1885; J2405; J7030

== ENCOUNTER 2021-01-24 08:06 | Emergency (ER) | payer BC, OTHER ==
[~2021-01-24] VITALS: Ht 152.4 cm; Wt 74.8 kg
[~2021-01-24 08:06] MED LIST changes: +ANUSOL-HC25 MG RC; +GOLYTELY SOLU4000 ML PO
[2021-01-24] MEDS ORDERED: BROMFED DM COU118 ML PO (08:46)
[2021-01-24] MEDS ORDERED: AZITHROMYCIN500 MG PO (08:46)
[2021-01-24] MEDS ORDERED: PREDNISONE20 MG PO (08:46)
== END 2021-01-24 08:53 | disposition home or self-care (01) ==
LOC: FSED 08:35
DX: H66.91 Otitis media, unspecified, right ear (principal); J02.9 Acute pharyngitis, unspecified; E11.9 Type 2 diabetes mellitus without complications; N80.9 Endometriosis, unspecified; F17.210 Nicotine dependence, cigarettes, uncomplicated
CPT/HCPCS: 99282

== ENCOUNTER 2021-03-02 09:29 | Emergency (ER) | payer OTHER ==
[~2021-03-02] VITALS: Ht 152.4 cm; Wt 74.8 kg
[~2021-03-02 09:29] MED LIST changes: +AZITHROMYCIN500 MG PO; +BROMFED DM COU118 ML PO; +PREDNISONE20 MG PO
[2021-03-02] MEDS ORDERED: KETOROLAC TROMETHAMINE 30 MG/ML VIAL IV STA (10:58)
[2021-03-02] MEDS ORDERED: SODIUM CHLORIDE 0.9% 1000ML 1,000 ML IV SCH (11:00)
[2021-03-02] MEDS ORDERED: KETOROLAC TROMETHAMINE 30 MG/ML VIAL ONE (11:31)
[2021-03-02] MEDS ORDERED: SODIUM CHLORIDE 0.9% 1000ML 1,000 ML ONE (11:31)
[2021-03-02] MEDS ORDERED: OXYBUTYNIN CHLOR5 MG PO (13:03)
[2021-03-02] MEDS ORDERED: METFORMIN HCL500 MG PO (13:04)
== END 2021-03-02 13:30 | disposition home or self-care (01) ==
LOC: FSED 09:40
DX: E11.65 Type 2 diabetes mellitus with hyperglycemia (principal); R35.8 Other polyuria; R10.30 Lower abdominal pain, unspecified; R11.2 Nausea with vomiting, unspecified; D64.9 Anemia, unspecified; N80.9 Endometriosis, unspecified; F17.210 Nicotine dependence, cigarettes, uncomplicated
CPT/HCPCS: 74176; 99284; J1885; J7030

== ENCOUNTER 2021-04-12 16:25 | Emergency (ER) | payer OTHER ==
[~2021-04-12] VITALS: Ht 152.4 cm; Wt 73.1 kg
[~2021-04-12 16:25] MED LIST changes: +OXYBUTYNIN CHLOR5 MG PO
[2021-04-12] MEDS ORDERED: ONDANSETRON HCL INJ 2MG/ML 2ML 2 MG/ML VIAL IV STA (17:05)
[2021-04-12] MEDS ORDERED: FAMOTIDINE 20 MG/2 ML VIAL IV STA (17:08)
[2021-04-12] MEDS ORDERED: KETOROLAC TROMETHAMINE 30 MG/ML VIAL IV STA (17:10)
[2021-04-12] MEDS ORDERED: SODIUM CHLORIDE 0.9% 1000ML 1,000 ML IV SCH (17:15)
[2021-04-12] MEDS ORDERED: ONDANSETRON HCL INJ 2MG/ML 2ML 2 MG/ML VIAL ONE (17:35)
[2021-04-12] MEDS ORDERED: KETOROLAC TROMETHAMINE 30 MG/ML VIAL ONE (17:36)
[2021-04-12] MEDS ORDERED: FAMOTIDINE 20 MG/2 ML VIAL IV ONE (17:36)
[2021-04-12] MEDS ORDERED: SODIUM CHLORIDE 0.9% 1000ML 1,000 ML ONE (17:36)
[2021-04-12] MEDS ORDERED: ONDANSETRON ODT4 MG PO (18:50)
[2021-04-12] MEDS ORDERED: FAMOTIDINE40 MG PO (18:51)
== END 2021-04-12 19:06 | disposition home or self-care (01) ==
LOC: FSED 16:50
DX: R51.9 Headache, unspecified (principal); R11.0 Nausea; R05 Cough; B34.9 Viral infection, unspecified; E11.65 Type 2 diabetes mellitus with hyperglycemia; D64.9 Anemia, unspecified
CPT/HCPCS: 71046; 99284; J1885; J2405; J7030

== ENCOUNTER 2021-04-26 07:24 | Emergency (ER) | payer OTHER ==
[~2021-04-26] VITALS: Ht 152.4 cm; Wt 74.8 kg
[~2021-04-26 07:24] MED LIST changes: +FAMOTIDINE40 MG PO; +ONDANSETRON ODT4 MG PO
== END 2021-04-26 08:23 | disposition home or self-care (01) ==
LOC: FSED 07:31
DX: U07.1 COVID-19 (principal); J18.9 Pneumonia, unspecified organism; R06.02 Shortness of breath; R05 Cough; E11.9 Type 2 diabetes mellitus without complications; F17.210 Nicotine dependence, cigarettes, uncomplicated
CPT/HCPCS: 71046; 99283

== ENCOUNTER 2021-07-25 16:24 | Emergency (ER) | payer OTHER ==
[~2021-07-25] VITALS: Ht 152.4 cm; Wt 72.6 kg
[2021-07-25] MEDS ORDERED: CYCLOBENZAPRINE5 MG PO (18:13)
== END 2021-07-25 18:23 | disposition home or self-care (01) ==
LOC: FSED 17:20
DX: M54.89 Other dorsalgia (principal); E11.9 Type 2 diabetes mellitus without complications; N26.1 Atrophy of kidney (terminal); Z88.0 Allergy status to penicillin; Z91.041 Radiographic dye allergy status; Z79.84 Long term (current) use of oral hypoglycemic drugs
CPT/HCPCS: 36415; 71045; 81003; 82948; 99283

== ENCOUNTER 2022-01-17 13:06 | Emergency (ER) | payer OTHER ==
[~2022-01-17] VITALS: Ht 157.5 cm; Wt 75.4 kg
[~2022-01-17 13:06] MED LIST changes: +CYCLOBENZAPRINE5 MG PO
== END 2022-01-17 15:08 | disposition home or self-care (01) ==
LOC: FSED 13:44
DX: R07.89 Other chest pain (principal); F41.9 Anxiety disorder, unspecified; E11.65 Type 2 diabetes mellitus with hyperglycemia; R20.2 Paresthesia of skin
CPT/HCPCS: 36415; 71045; 80048; 82553; 82948; 84484; 85025; 99284

== ENCOUNTER 2022-06-16 20:16 | Emergency (ER) | payer OTHER ==
[~2022-06-16] VITALS: Ht 157.5 cm; Wt 75.3 kg
[2022-06-16] MEDS ORDERED: NAPROSYN500 MG PO (22:25)
[2022-06-16] MEDS ORDERED: CYCLOBENZAPRINE10 MG PO (22:26)
== END 2022-06-16 23:04 | disposition home or self-care (01) ==
LOC: FSED 21:19
DX: M54.50 Low back pain, unspecified (principal); M79.18 Myalgia, other site; E11.9 Type 2 diabetes mellitus without complications; F17.210 Nicotine dependence, cigarettes, uncomplicated
CPT/HCPCS: 81003; 81025; 99282